=== PATIENT | male | born 1970 | race Hispanic/Latino ===

== ENCOUNTER 2018-07-29 20:43 | Emergency (ER) | payer BC ==
[2018-07-29 20:50] VITALS: BP 121/72; PULSE 100; RESP 16; TEMP 98.5; O2SAT 96
[2018-07-29] MEDS ORDERED: Tdap Vaccine 0.5 ml Vial (10-64 yrs) IM ONE ×2 (20:57→21:04)
--- NOTE | 2018-07-29 21:14 | ED PDOC ---
HPI: Trauma/Fall - HPI Time Seen by Provider: 07/29/18 20:51 Chief Complaint (Nursing): Trauma Chief Complaint (Provider): Trauma History Per: Patient, Other (Viridiana (coworker - at bedside)) History/Exam Limitations: no limitations Onset/Duration Of Symptoms: Mins Injury Occurred (Timing): Just Before Arrival Location Of Injury: Right: Hand (thumb), Anterior: Head (upper lip) Severity: Moderate Associated Symptoms: denies: LOC Additional Complaint(s): 47 year old male with no pertinent past medical history presents to the ED for an evaluation of an facial laceration and right thumb status post fall that occurred just prior to arrival. Patient (as witnessed by his coworker Viridiana) was running to catch the train when he slipped and fell face forward, sustaining a laceration to the upper lip, and injuring his right thumb. Patient denies loss of consciousness, nausea vomiting, head injury,and previous head injury. Tetanus is not up to date. Of note, pt. did drink alcohol today. PMD: None provided. - Fall Fall:Prior To Injury: Slipped Past Medical History Reviewed: Historical Data, Nursing Documentation, Vital Signs Vital Signs: Last Vital Signs Temp 98.5 F 07/29/18 20:49 Pulse 100 H 07/29/18 20:49 Resp 16 07/29/18 20:49 BP 121/72 07/29/18 20:49 Pulse Ox 96 07/29/18 20:49 - Medical History PMH: No Chronic Diseases - Family History Family History: States: No Known Family Hx - Social History Alcohol: Occasional Drugs: Denies - Immunization History Hx Tetanus Toxoid Vaccination: No (not up to date) - Home Medications Home Medications: Ambulatory Orders Medication Instructions Recorded Amoxicillin/Potassium Clav 1 each PO BID #20 tablet 07/29/18 [Amox-Clav 250-125 mg Tablet] - Allergies Allergies/Adverse Reactions: Allergies Allergy/AdvReac Type Severity Reaction Status Date / Time No Known Allergies Allergy Verified 07/29/18 20:51 Review of Systems ROS Statement: Except As Marked, All Systems Reviewed And Found Negative Gastrointestinal: Negative for: Nausea, Vomiting Musculoskeletal: Positive for: Other (right thumb injury) Skin: Positive for: Other (laceration to upper lip) Physical Exam - Reviewed Nursing Documentation Reviewed: Yes Vital Signs Reviewed: Yes - Physical Exam Appears: Positive for: Well, Non-toxic, No Acute Distress Head Exam: Positive for: ATRAUMATIC, NORMAL INSPECTION, NORMOCEPHALIC Skin: Positive for: Normal Color, Warm. Negative for: Rash Eye Exam: Positive for: Normal appearance, EOMI, PERRL ENT: Positive for: TM Is/Are (no hemotympanum b/l), Other (1 cm jagged lip laceration on the middle part of upper lip extending superiorly to beyond the vermilion with 1cm linear laceration on inner upper lip - laceration is no through and through; no facial tenderenss; dentition intact; ) Neck: Positive for: Normal, Painless ROM. Negative for: Pain On Movement Of Neck Cardiovascular/Chest: Positive for: Regular Rate, Rhythm, Chest Non Tender Respiratory: Positive for: Normal Breath Sounds Pulses-Radial (L): 2+ Pulses-Radial (R): 2+ Gastrointestinal/Abdominal: Positive for: Soft, Other (no ecchymosis). Negative for: Tenderness Back: Positive for: Normal Inspection. Negative for: Vertebral Tenderness (including c-spine) Extremity: Positive for: Tenderness (mild tenderness to right thumb. (-) swelling or deformity to IP joint.), Capillary Refill (< 2 seconds to right thumb) Neurologic/Psych: Positive for: Alert, Oriented (3x), Gait (steady and unassisted), Other (AOB; no slurred speech). Negative for: Aphasia, Facial Droop - ECG O2 Sat by Pulse Oximetry: 96 (RA) Pulse Ox Interpretation: Normal Medical Decision Making Medical Decision Makin:51 Initial impression: 47 year old male with multiple injuries status post fall. Initial plan: - XRay hand right thumb - adacel (10-64 yrs) 0.[address] Chavez evaluated pt. in ED and repaired laceration. Requests that pt. be prescribed Augmentin. Thumb x-ray: no fx. Thumb immobilized in aluminum finger splint applied by PA. On re-evaluation, pt. with steady, unassisted gait. No slurred speech. Scribe Attestation: Documented by Lynsey Martinez, acting as a scribe for Marvel Barrera Provider Scribe Attestation: All medical record entries made by the Scribe were at my direction and personally dictated by me. I have reviewed the chart and agree that the record accurately reflects my personal performance of the history, physical exam, medical decision making, and the department course for this patient. I have also personally directed, reviewed, and agree with the discharge instructions and disposition. Disposition - Clinical Impression Clinical Impression: Head injury, Lip laceration, Thumb injury - Patient ED Disposition Is Patient to be Admitted: No - Disposition [facility] [Outside] Eduarda Chavez MD [Medical Doctor] - Disposition: Routine/Home Disposition Time: 21:50 Condition: STABLE Additional Instructions: FOLLOW UP WITH DR. CHAVEZ PREVIOUSLY DISCUSSED RETURN TO ED IMMEDIATELY IF SYMPTOMS WORSEN [place], thank you for letting us take care of you today. Your provider was Gorge Scherer MD and you were treated for FALL: LIP LACERATION. The emergency medical care you received today was directed at your acute symptoms. If you were prescribed any medication, please fill it and take as directed. It may take several days for your symptoms to resolve. Return to the Emergency Department if your symptoms worsen, do not improve, or if you have any other problems. Please contact your doctor or call one of the physicians/clinics you have been referred to that are listed on the Patient Visit Information form that is included in your discharge packet. Bring any paperwork you were given at discharge with you along with any medications you are taking to your follow up visit. Our treatment cannot replace ongoing medical care by a primary care provider outside of the emergency department. Thank you for allowing the [facility] team to be part of your care today. If you had an X-Ray or CT scan: A Radiologist will review the ED reading if any change in treatment is needed we will contact you. If you had a blood, urine, or wound culture: It will take several days for the results, if any change in treatment is needed we will contact you. If you had an STI test: It will take 48 hours for the results. Please call after 1 week if you have not heard back. Prescriptions: Amoxicillin/Potassium Clav [Amox-Clav 250-125 mg Tablet] 1 each PO BID #20 tablet Instructions: Wound Care (DC), Minor Head Injury (DC), Finger Sprain (DC) Forms: [facility] (Persian)
[2018-07-29] MEDS ORDERED: Naproxen 500 MG TAB PO ONE (21:54)
--- NOTE | 2018-07-30 08:58 | RAD ---
PROCEDURE: Right Hand Radiographs. HISTORY: trauma COMPARISON: None. FINDINGS: BONES: Normal. No fracture. JOINTS: Normal. No osteoarthritic changes. SOFT TISSUES: Normal. OTHER FINDINGS: None. IMPRESSION: Normal right hand radiographs.
== END 2018-07-29 22:03 | disposition home or self-care (01) ==
LOC: H.ER 20:43
DX: S09.90XA Unspecified injury of head, initial encounter (principal); S01.511A Laceration without foreign body of lip, initial encounter; S69.91XA Unspecified injury of right wrist, hand and finger(s), initial encounter; W19.XXXA Unspecified fall, initial encounter; Y92.89 Other specified places as the place of occurrence of the external cause